=== PATIENT | male | born 1945 | race Two or more races ===

== ENCOUNTER 2022-01-01 10:22 | Inpatient (IN) | payer OTHER ==
[~2022-01-01] VITALS: Ht 167.6 cm; Wt 84.4 kg
[~2022-01-01 10:22] MED LIST: ATIVAN0.5 M1 PO; LEXAPRO20 MG PO; NEXIUM40 M1 PO; TOPROL XL25 M1 PO
[2022-01-03] MEDS ORDERED: ATORVASTATIN CA10 MG (15:27)
[2022-01-03] MEDS ORDERED: LISINOPRIL2.5 MG (15:27)
[2022-01-03] MEDS ORDERED: LOPRESSOR25 MG (15:27)
[2022-01-05] MEDS ORDERED: INTESTINEX680 M1 PO (15:09)
[2022-01-05] MEDS ORDERED: ELIQUIS5 MG PO (15:09)
== END 2022-01-05 23:08 | disposition home or self-care (01) | DRG 331 ==
LOC: CIR.AMB 10:22 → O/R 22:16 → SURH 22:16
PROVIDERS: ADMIT Surgery; ATTEND Surgery
PROC: 07BB4ZZ Excision of Mesenteric Lymphatic, Percutaneous Endoscopic Approach (ICD-10-PCS; 2022-01-01)
PROC: 0DBU4ZZ Excision of Omentum, Percutaneous Endoscopic Approach (ICD-10-PCS; 2022-01-01)
PROC: 0DTF4ZZ Resection of Right Large Intestine, Percutaneous Endoscopic Approach (ICD-10-PCS; principal; 2022-01-01 17:30)
PROC: 4A12X4Z Monitoring of Cardiac Electrical Activity, External Approach (ICD-10-PCS; 2022-01-05)
DX: C18.1 Malignant neoplasm of appendix (principal); R59.0 Localized enlarged lymph nodes; N32.0 Bladder-neck obstruction; I10 Essential (primary) hypertension; I48.0 Paroxysmal atrial fibrillation; Z20.822 Contact with and (suspected) exposure to COVID-19; G47.33 Obstructive sleep apnea (adult) (pediatric)